=== PATIENT | female | born 1970 | race Caucasian/White ===

== ENCOUNTER 2018-06-05 06:02 | Day surgery (SDC) | payer OTHER ==
[2018-06-04 09:26] VITALS: BMI 29.2
--- NOTE | 2018-06-04 15:42 | HP ---
- Patient Scheduled date of Surgery: 06/05/18 Affected Eye: Left Chief Complaint (Indication for surgery): Decreased vision affecting ADLs - Ocular History Other Eye History: Other (none) Eye Medications: ocuflox Previous Eye Surgery: none - Medical History Illnesses: None Current Medications: Ambulatory Orders NK [No Known Home Medication] 06/04/18 Allergies/Adverse Reactions: Allergies Allergy/AdvReac Type Severity Reaction Status Date / Time No Known Allergies Allergy Verified 06/04/18 09:25 Ocular Examination - Best Corrected Visual Acuity Distance: Right eye: 20/30 Distance: Left eye: 20/60 - External/Slit Lamp Examination Abnormalities: none - Intraocular Pressure Intraocular Pressure - Right eye: 16 Intraocular Pressure-Left eye: 16 - Lens Lens: 2+ post cortical - Vitreous/Retina Vitreous/Retina: c:d 0.4 m/v/p wnl - Special Examination M - Right eye: +2.25-0.75 x 090 M - Left eye: +1.75 -075 x 110 K - Right eye: 43.25/43.75 K - Left eye: 43.25/43.75 AL - Right eye: 23.10 AL - Left eye: 22.61 IOL bag: +23.5 IOL sulcus: +22.5 IOL AC: +19.5 - Plan Plan: Phacoemulsification and cataract extraction - IOL Left eye Post-hospital care will be provided in office on: 06/05/18
[2018-06-05] MEDS ORDERED: CIPROFLOXACIN HCL 0.3% OPHTH 2.5ML BOTTLE ONE (06:24)
[2018-06-05] MEDS ORDERED: TROPICAMIDE 1% OPHTH SOLN 15 ML BOTTLE ONE (06:24)
[2018-06-05] MEDS ORDERED: KETOROLAC TROMETHAMINE 0.5% EYE DROP 1 DROP DROPS ONE (06:25)
[2018-06-05] MEDS: KETOROLAC TROMETHAMINE 0.5% EYE DROP 1 DROP DROPS OP SCH ×3 (06:40→06:55)
[2018-06-05] MEDS: CIPROFLOXACIN HCL 0.3% OPHTH 2.5ML BOTTLE OP SCH ×3 (06:40→06:55)
[2018-06-05] MEDS: TROPICAMIDE 1% OPHTH SOLN 15 ML BOTTLE OP SCH ×3 (06:45→06:55)
[2018-06-05] MEDS: PHENYLEPHRINE 2.5% OPHTH SOLN 15 ML BOTTLE OP SCH ×3 (06:45→06:55)
[2018-06-05] MEDS ORDERED: ACETAMINOPHEN 325 MG TABLET (FP) PO PRN (07:00)
[2018-06-05] MEDS ORDERED: CHONDROITIN SU A/HYALUR SOD 1 KIT ONE (07:16)
[2018-06-05] MEDS ORDERED: LIDOCAINE HCL/PF 1% SDV 5ML VIAL ONE (07:19)
[2018-06-05] MEDS ORDERED: EPINEPHrine/PF 1 MG/1 ML (1:1,000) AMPULE ONE (07:19)
[2018-06-05] MEDS ORDERED: TOBRAMYCIN/DEXAMETHASONE OPHTH. OINTMENT 1 TUBE ONE (07:19)
[2018-06-05] MEDS ORDERED: POVIDONE-IODINE 5% OPHTHALMIC PREP 30 ML SOLUTION ONE (07:20)
[2018-06-05] MEDS ORDERED: TETRACAINE 0.5% OPHTH SOLN 2 ML BOTTLE ONE (07:20)
--- NOTE | 2018-06-05 07:27 | HP ---
History & Physical Update - History History: No Change - Physical Physical: No Change - Assessment Assessment: No Change - Plan Plan: No Change (H and P by Dr. Santa Henderson reviewed, no changes)
[2018-06-05] MEDS ORDERED: MIDAZOLAM HCL 2 MG/2 ML SINGLE DOSE VIAL ONE (07:44)
[2018-06-05] MEDS ORDERED: TETRACAINE 0.5% OPHTH SOLN 2 ML BOTTLE OS ONE (07:46)
[2018-06-05] MEDS ORDERED: POVIDONE-IODINE 5% OPHTHALMIC PREP 30 ML SOLUTION OS ONE (07:48)
[2018-06-05] MEDS ORDERED: BSS (NA/CA/MG/K) BALANCED SALT SOLUTION OPHTH SOLN 15 ML BOTTLE OS ONE (07:55)
[2018-06-05] MEDS ORDERED: LIDOCAINE HCL 1% PRESERVATIVE FREE - 30ML VIAL IO ONE (07:55)
[2018-06-05] MEDS ORDERED: CHONDROITIN SU A/HYALUR SOD 1 KIT IO ONE (07:55)
[2018-06-05] MEDS ORDERED: EPINEPHrine/PF 1 MG/1 ML (1:1,000) AMPULE SQ ONE (08:02)
[2018-06-05] MEDS ORDERED: TOBRAMYCIN/DEXAMETHASONE OPHTH. OINTMENT 1 TUBE TP ONE (08:13)
--- NOTE | 2018-06-05 08:18 | OP ---
Ophthalmology Operative Note Pre-Operative Diagnosis: Cataract (cortical) Affected Eye: Left Operation: Phacoemulsification and cataract extraction with PCIOL Findings: cortical cataract Post-Operative Diagnosis: Same as Pre-op [employer] Operator: None Anesthesiologist: Evelyne Navarro MD Anesthesia: Topical Specimens Removed: none Estimated blood loss: <1 cc Drains & Tubes with Location: none Operative Report Dictated: Yes
[2018-06-05 09:00] VITALS: BP 107/68; PULSE 68; TEMP 98.1
--- NOTE | 2018-06-13 09:26 | OP ---
DATE OF OPERATION: 06/05/2018 PREOPERATIVE DIAGNOSIS: Cortical cataract, left eye. POSTOPERATIVE DIAGNOSIS: Cortical cataract, left eye. PROCEDURE: Phacoemulsification and cataract extraction with insertion of posterior chamber intraocular lens, left eye. SURGEON: Yaquelin Stone MD REAL TIME ANALYST: None. ANESTHESIA: Topical. ANESTHESIOLOGIST: Evelyne Navarro MD OPERATIVE PROCEDURE: The patient received tetracaine eye drops, and then was gently sedated and prepped and draped in the usual sterile fashion, so as to expose only the left eye. Ophthalmic Betadine was instilled into the inferior fornix, and the lashes were taped out of the surgical field. An eyelid speculum was placed into the left eye. A paracentesis was made in inferotemporal clear cornea at the limbus. Nonpreserved lidocaine 1%, 0.5 mL, was injected into the anterior chamber. Viscoelastic material was instilled into the anterior chamber via the paracentesis. A 2.4-mm keratome was then used to create the main incision in temporal clear cornea at the limbus. A continuous curvilinear capsulorrhexis was performed using a cystotome and Utrata forceps. Hydrodissection of the lens cortex was performed using BSS on a cannula until the nucleus was noted to be freely rotating. The phacoemulsification tip was inserted via the main wound and used to sculpt 2 perpendicular grooves into the lens nucleus. The nucleus was cracked into 4 quadrants. Each quadrant was lifted out of the capsule into the iris plane and individually phacoemulcified. The remaining cortical material was then aspirated using the irrigation and aspiration port. The capsular bag was inflated using Provisc and a preloaded AcrySof lens, model AU00T0, power +23.0 diopter, was injected into the capsular bag and centered using a Sinskey hook. The residual viscoelastic material was removed from the anterior chamber using irrigation and aspiration. The wound edges were hydrated using BSS. The wound was tested for leakage. It was found to be watertight. TobraDex ointment was placed intohe eye, and the speculum was removed from the eye, and the eyelid was closed. Sterile dressing and shield were placed over the eye, and the patient was transferred to the recovery room in stable condition and told to follow up in 1 day. YAQUELIN STONE M.D. DOROTHY/[id number]
== END 2018-06-05 09:05 | disposition home or self-care (01) ==
LOC: JASU-SURG 06:02
PROVIDERS: ATTEND Ophthalmology
PROC: 08RK3JZ Replacement of Left Lens with Synthetic Substitute, Percutaneous Approach (ICD-10-PCS; principal; 2018-06-05 07:30)
DX: H26.9 Unspecified cataract (principal)
CPT/HCPCS: 84703